=== PATIENT | male | born 2000 | race Caucasian/White ===

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

== ENCOUNTER 2019-05-19 10:24 | Emergency (ER) | payer OTHER ==
[~2019-05-19] VITALS: Ht 165.1 cm; Wt 93.0 kg
[2019-05-19 10:28] VITALS: BP 145/105
--- NOTE | 2019-05-19 10:38 | NUR ---
PT AMBULATED TO BED 6
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
[2019-05-19] MEDS ORDERED: ACETAMINOPHEN 325 MG TAB PO ONE (11:25)
--- NOTE | 2019-05-19 11:32 | NUR ---
PT GOING TO XRAY VIA W/C
[2019-05-19] MEDS ORDERED: HYDROmorphone PFS 2 MG/ML SYR IM ONE (12:30)
--- NOTE | 2019-05-19 12:36 | NUR ---
Placed PT's 2nd 3rd and 4th digits of the right hand into finger trap. Wrapped a weighted sand bag to the right elbow using an jeanna wrap for additional traction. Verbally ordered by MATTIE.
--- NOTE | 2019-05-19 13:07 | NUR ---
PT VERBALIZED "BEING IN TRACTION DEVICE MADE RIGHT WRIST FEEL BETTER"
--- NOTE | 2019-05-19 13:19 | NUR ---
DR. SHARP AT PT BEDSIDE REMOVING TRACTION DEVICE FROM PT RIGHT HAND
--- NOTE | 2019-05-19 13:28 | NUR ---
PT GOING TO XRAY VIA W/C
--- NOTE | 2019-05-19 15:07 | NUR ---
SUGARTONG SPLINT PLACED ON PT'S RIGHT ARM, FITTED ARM FOR SLING WELL.
--- NOTE | 2019-05-19 15:59 | NUR ---
PT MOTHER AT PT BEDSIDE
--- NOTE | 2019-05-19 16:38 | NUR ---
PT SITTING ON SIDE OF BED WITH MOTHER AT BEDSIDE. VSS. WILL CONTINUE TO MONITOR.
[2019-05-19 16:54] VITALS: BP 153/87
--- NOTE | 2019-05-19 16:54 | NUR ---
Patient discharged with v/s stable. Written and verbal after care instructions given and explained. Patient alert, oriented and verbalized understanding of instructions. Ambulatory with steady gait. All questions addressed prior to discharge. ID band removed. Patient advised to follow up with excel specialist. Pt advised he has an appointment at 1300 tomorrow and was given phone # and address of where to go with copy of CD and x-ray reports. Rx of Horton 5mg-325mg given. Patient educated on indication of medication including possible reaction and side effects. Opportunity to ask questions provided and answered.
== END 2019-05-19 16:54 | disposition home or self-care (01) ==
LOC: MED 10:24
DX: S63.094A Other dislocation of right wrist and hand, initial encounter (principal); F41.9 Anxiety disorder, unspecified; V00.131A Fall from skateboard, initial encounter; Y93.51 Activity, roller skating (inline) and skateboarding; Y92.89 Other specified places as the place of occurrence of the external cause; Y99.8 Other external cause status
CPT/HCPCS: 29125; 73110; 96372; 99283; J1170